=== PATIENT | male | born 1990 | race Caucasian/White ===

== ENCOUNTER 2024-08-31 08:39 | Observation (INO) | payer OTHER ==
[2024-08-31] MEDS ORDERED: ONDANSETRON 4 MG/2 ML VIAL ONE (09:48)
[2024-08-31] MEDS ORDERED: LORazepam 2 MG/ML VIAL ONE (09:48)
[2024-08-31] MEDS ORDERED: NA CHLORIDE 0.9% 1,000 ML ONE (09:49)
[2024-08-31] MEDS ORDERED: chlordiazePOXIDE HCl 25 MG CAP ONE (09:49)
[2024-08-31] MEDS ORDERED: FAMOTIDINE 20 MG/2 ML VIAL IV ONE (09:49)
[2024-08-31] MEDS: FOLIC ACID 1 MG, MULTIVITAMINS INJ 10 ML, THIAMINE HCL 100 MG in NA CHLORIDE 0.9% 1,000 ML IV ONE (10:00)
[2024-08-31 10:18] LABS: Sqamous Epithelial <5 /HPF (None Seen); Urine Bacteria None Seen /HPF (<20); Urine Bilirubin NEGATIVE (Negative); Urine Blood Negative (Negative); Urine Clarity Extremely Turbid (Clear); Urine Color Light-Yellow (Yellow); Urine Culture Reflex Order NOT NEEDED; Urine Glucose NEGATIVE (Negative); Urine Ketones 1+ (Negative); Urine Microscopic Reflex YN ORDER UMIC; Urine Mucus Slight /HPF (None Seen); Urine Nitrite NEGATIVE (Negative); Urine Protein TRACE (Negative); Urine RBC <5 /HPF (None Seen); Urine Urobilinogen Normal (Normal); Urine WBC <5 /HPF (<5); Urine pH 6.5 (5.0-7.0)
[2024-08-31 10:23] LABS: Barbiturates NEGATIVE (NEGATIVE); Benzodiazepines NEGATIVE (NEGATIVE); Cocaine NEGATIVE (NEGATIVE); METHAMPHETAM NEGATIVE (NEGATIVE); Methadone NEGATIVE (NEGATIVE); Opiates NEGATIVE (NEGATIVE); Phencyclidine NEGATIVE (NEGATIVE); THC Cannibis POSITIVE (NEGATIVE)
--- NOTE | 2024-08-31 10:24 | RAD REPORT ---
Procedure: Chest Single View HISTORY: Cough COMPARISON: none FINDINGS: The lungs appear clear of acute infiltrate. No significant pleural effusion noted. The heart is normal size. IMPRESSION: No acute abnormality is displayed.
[2024-08-31] MEDS ORDERED: PANTOPRAZOLE 40 MG INJ ONE (10:31)
--- NOTE | 2024-08-31 10:56 | RAD REPORT ---
EXAMINATION: CT ABDOMEN AND PELVIS WITHOUT CONTRAST CLINICAL INDICATION: Abdominal pain TECHNIQUE: CT abdomen and pelvis was performed, as per department protocol. IV contrast and oral was not administered.Axial, sagittal and coronal reconstructions were obtained. One or more of the following dose reduction techniques were used: Automated exposure control, adjustment of the mA and/o r kV according to the patient size, and/or iterative reconstruction. Unless otherwise specified, incidental findings do not require dedicated imaging follow-up. [id number]. COMPARISON: No prior exam. FINDINGS: The lack of intravenous and oral contrast limits evaluation of solid organs, vessels and bowel. Some images are degraded by patient motion artifact. The esophagus is dilated and fluid-filled. Small right pleural effusion. Fatty liver. The spleen, pancreas, adrenals and kidneys appear grossly normal No evidence of diverticulitis Normal appendix IMPRESSION: Dilated fluid-filled esophagus Fatty liver
[2024-08-31 11:05] LABS: Absolute Lymphocytes (CBC) 0.6 K/uL (0.7-4.9); Absolute Monocytes 0.5 K/uL (0.1-1.3); Absolute Neutrophil 3.7 K/uL (1.8-8.0); Basophils % 0.6 % (0-1.3); Hematocrit 47.8 % (39.6-49.0); Hemoglobin 16.1 g/dL (13.6-17.9); Lymphocytes % 11.7 % (15.3-44.8); MCHC 33.7 g/dL (32.0-36.0); MPV 6.5 fL (7.6-11.3); Monocytes % 10.1 % (3.3-12.3); Neutrophils % 77.6 % (41.7-73.7); Nucleated Red Blood Cells % 0.1 % (0-0); Platelets 128 thou/uL (152-406); RBC Red Blood Cell Count 4.73 M/uL (4.33-5.43); Red Cell Distribution Width 14.2 % (12.1-15.2)
[2024-08-31 11:10] LABS: PT Prothrombin Time 11.4 SECONDS (9.4-12.5); PTT, Activated Partial Thromb 27.1 SECONDS (24.3-36.9); Protime INR 1.02
[2024-08-31 11:36] LABS: ALT/SGPT 228 U/L (16-61); AST/SGOT 188 U/L (15-37); Albumin 3.8 g/dL (3.4-5.0); Alkaline Phosphatase 67 U/L (45-117); Anion Gap 14.6 mEq/L (5.0-15.0); BUN Blood Urea Nitrogen 9 mg/dL (7-18); Bicarbonate 28 mEq/L (21-32); Bilirubin Direct 0.3 mg/dL (0-0.2); Bilirubin Indirect, Calculated 0.2 mg/dL (0.2-0.8); Bilirubin Total 0.5 mg/dL (0.2-1.0); Globulin 3.9 g/dL (2.3-3.5); Glomerular Filtration Rate 118 ml/min (=/>90); Glucose Level 120 mg/dL (74-106); Magnesium 2.2 mg/dL (1.6-2.4); Potassium 3.6 mEq/L (3.5-5.1); Protein, Total 7.7 g/dL (6.4-8.2); Sodium Level 140 mEq/L (136-145); Troponin High Sensitivity 11.2 pg/mL (<58.9)
[2024-08-31 11:58] LABS: NT PRO-BNP < 5 pg/mL (<125)
--- NOTE | 2024-08-31 12:46 | EDPHYS ---
Physician Documentation [facility] Name: Osiel Davidson Age: 34 yrs Sex: Male : 1990 Arrival Date: 08/31/2024 Time: 08:39 Bed 14 Private MD: ED Physician Axel Ruiz HPI: 08/31 12:38 This 34 yrs old Male presents to ER via Ambulatory with complaints of Alcohol joseph Withdrawal. 12:38 The patient presents to the emergency department with depression, a history of joseph substance abuse, Type: beer, vodka, 16 DRINKS. Onset: The symptoms/episode began/occurred 5 year(s) ago. Past psychiatric history: Prior diagnosis: no previous psychiatric diagnosis known. Associated signs and symptoms: Pertinent positives; abdominal pain, substance abuse. Severity of symptoms: At their worst the symptoms were moderate in the emergency department the symptoms are unchanged. The patient has experienced similar episodes in the past, chronically. Historical: - Allergies: 09:14 No Known Allergies; bp - Home Meds: 09:14 None [Active]; bp - PMHx: 09:14 None; bp - Immunization history:: Adult Immunizations up to date. - Infectious Disease History:: Denies. - Social history:: Smoking status: Patient denies any tobacco usage or history of. - Family history:: not pertinent. ROS: 12:38 Constitutional: Negative for fever, chills, and weight loss, Eyes: Negative for injury, joseph pain, redness, and discharge, ENT: Negative for injury, pain, and discharge, Neck: Negative for injury, pain, and swelling, Cardiovascular: Negative for chest pain, palpitations, and edema, Respiratory: Negative for shortness of breath, cough, wheezing, and pleuritic chest pain, Back: Negative for injury and pain, : Negative for injury, bleeding, discharge, and swelling, MS/Extremity: Negative for injury and deformity, Skin: Negative for injury, rash, and discoloration, Allergy/Immunology: Negative for hives, rash, and allergies, Endocrine: Negative for neck swelling, polydipsia, polyuria, polyphagia, and marked weight changes, Hematologic/Lymphatic: Negative for swollen nodes, abnormal bleeding, and unusual bruising, 12:38 Abdomen/GI: Positive for abdominal pain, nausea, 12:38 Neuro: Positive for weakness, 12:38 Psych: Positive for depression, alcohol dependence, Exam: 12:38 Constitutional: This is a well developed, well nourished patient who is awake, alert, joseph and in no acute distress. Head/Face: Normocephalic, atraumatic. Eyes: Pupils equal round and reactive to light, extra-ocular motions intact. Lids and lashes normal. Conjunctiva and sclera are non-icteric and not injected. Cornea within normal limits. Periorbital areas with no swelling, redness, or edema. ENT: Nares patent. No nasal discharge, no septal abnormalities noted. Tympanic membranes are normal and external auditory canals are clear. Oropharynx with no redness, swelling, or masses, exudates, or evidence of obstruction, uvula midline. Mucous membranes moist. Neck: Trachea midline, no thyromegaly or masses palpated, and no cervical lymphadenopathy. Supple, full range of motion without nuchal rigidity, or vertebral point tenderness. No Meningismus. Chest/axilla: Normal chest wall appearance and motion. Nontender with no deformity. No lesions are appreciated. Cardiovascular: Regular rate and rhythm with a normal S1 and S2. No gallops, murmurs, or rubs. Normal PMI, no JVD. No pulse deficits. Respiratory: Lungs have equal breath sounds bilaterally, clear to auscultation and percussion. No rales, rhonchi or wheezes noted. No increased work of breathing, no retractions or nasal flaring. Back: No spinal tenderness. No costovertebral tenderness. Full range of motion. Male : Normal genitalia with no discharge or lesions. Skin: Warm, dry with normal turgor. Normal color with no rashes, no lesions, and no evidence of cellulitis. MS/ Extremity: Pulses equal, no cyanosis. Neurovascular intact. Full, normal range of motion., bilateral aka 12:38 ECG was reviewed by the Attending Physician. 12:38 Abdomen/GI: Inspection: distension, Bowel sounds: active, Palpation: mild abdominal tenderness, in the epigastric area, right upper quadrant and left upper quadrant, Liver: is enlarged, palpable 3 cm(s) below rib margin, Hernia: not appreciated, Vital Signs: 09:12 BP 129 / 104; Pulse 122; Resp 18; Temp 98; Pulse Ox 97% ; bp 10:41 BP 152 / 116; Pulse 111; Resp 16 S; Pulse Ox 96% on 2.5 lpm NC; kc6 11:16 BP 138 / 96; Pulse 111; Resp 16 S; Pulse Ox 94% on 2.5 lpm NC; kc6 12:26 BP 119 / 89; Pulse 94; Resp 18 S; Pulse Ox 95% on 2.5 lpm NC; kc6 15:32 BP 126 / 82; Pulse 100; Resp 18 S; Pulse Ox 95% on R/A; kc6 MDM: 08:49 Medical Screening Exam initiated joseph 12:41 Differential diagnosis: acute psychotic break, depression. Differential Diagnosis joseph altered mental status. Data reviewed: vital signs, nurses notes, lab test result(s), EKG, radiologic studies, CT scan, plain films. Consideration of Admission/Observation Patient was admitted/placed on observation. Escalation of care including admission/observation considered. I considered the following discharge prescriptions or medication management in the emergency department Medications were administered in the Emergency Department. See MAR. Independent interpretation of the following test(s) in the Emergency Department EKG: See my EKG interpretation above. Test considered but Not performed: Ultrasound NO AND US , NO CT HEAD. Historians other than the Patient: Spouse/Significant Other: /SO. Care significantly affected by the following chronic conditions: ALCOHOLISM. Counseling: I had a detailed discussion with the patient and/or guardian regarding the historical points, exam findings, and any diagnostic results supporting the discharge/admit diagnosis, lab results, radiology results, the need for further work-up and treatment in the hospital. 08/31 08:52 Order name: Basic Metabolic Panel; Complete Time: 12:07 [facility] 08/31 08:52 Order name: CBC with Diff; Complete Time: 11:20 [facility] 08/31 08:52 Order name: LFT's; Complete Time: 12:07 [facility] 08/31 08:52 Order name: Magnesium; Complete Time: 12:07 [facility] 08/31 08:52 Order name: NT PRO-BNP; Complete Time: 12:07 [facility] 08/31 08:52 Order name: PT-INR; Complete Time: 11:20 08/31 08:52 Order name: Troponin HS; Complete Time: 12:07 joseph 08/31 08:52 Order name: Acetaminophen; Complete Time: 12:07 [facility] 08/31 08:52 Order name: ETOH Level; Complete Time: 12:07 [facility] 08/31 08:52 Order name: Ptt, Activated; Complete Time: 11:20 joseph 08/31 08:52 Order name: Salicylate; Complete Time: 12:07 [facility] 08/31 08:52 Order name: Urinalysis w/ reflexes; Complete Time: 10:42 joseph 08/31 08:52 Order name: Urine Drug Screen; Complete Time: 10:42 joseph 08/31 14:48 Order name: CBC with Automated Diff EDMS 08/31 14:48 Order name: CBC with Automated Diff EDMS 08/31 14:48 Order name: CBC with Automated Diff EDMS 08/31 14:48 Order name: Comprehensive Metabolic Panel EDMS 08/31 14:48 Order name: Comprehensive Metabolic Panel EDMS 08/31 14:48 Order name: Comprehensive Metabolic Panel EDMS 08/31 14:48 Order name: Lipid Profile EDMS 08/31 14:48 Order name: Lipid Profile EDMS 08/31 14:48 Order name: Protime (+INR) EDMS 08/31 14:48 Order name: Protime (+INR) EDMS 08/31 08:52 Order name: XRAY Chest (1 view); Complete Time: 10:42 [facility] 08/31 10:08 Order name: CT Abd/Pelvis - Without Contrast; Complete Time: 11:20 [facility] 08/31 14:41 Order name: Social Service Consult EDAR 08/31 08:52 Order name: Cardiac monitoring; Complete Time: 09:45 joseph 08/31 08:52 Order name: EKG - Nurse/Tech; Complete Time: 09:45 08/31 08:52 Order name: IV Saline Lock; Complete Time: 09:45 08/31 08:52 Order name: Labs collected and sent; Complete Time: 09:45 joseph 08/31 08:52 Order name: O2 Per Protocol; Complete Time: 09:27 joseph 08/31 08:52 Order name: O2 Sat Monitoring; Complete Time: 09:27 [facility] 08/31 08:52 Order name: Suicide Screening ([place]); Complete Time: 09:45 [facility] 08/31 10:12 Order name: Labs - recollect needed: recollect all the labs/ hemolyzed per Pamela; eb Complete Time: 10:56 EC:38 Rate is 108 beats/min. Rhythm is regular. QRS Allison is Normal. LA interval is normal. joseph QRS interval is normal. QT interval is normal. No Q waves. T waves are Normal. No ST changes noted. Clinical impression: Sinus tachycardia and No evidence of ischemia. Interpreted by me. Administered Medications: 10:04 Drug: NS 0.9% IV 1000 ml IV at 1000 ml once; to be given as a bolus over 60 minutes kc6 Route: IV; Rate: 1000 ml; Site: right antecubital; 12:27 Follow up: Response: No adverse reaction; IV Status: Completed infusion; IV Intake: kc6 1000ml 10:04 Drug: Banana Bag - (Multivitamin IV 1 amp, NS 0.9% IV 1000 ml, Thiamine IV 100 mg, kc6 foLIC Acid IVPB 1 mg) IV at 500 calculated rate once Route: IV; Rate: 500 calculated rate; Site: right antecubital; 14:37 Follow up: Response: No adverse reaction; IV Status: Completed infusion; IV Intake: kc6 1000ml 10:04 Drug: Thiamine IV 100 mg IV at per protocol once Route: IV; Rate: per protocol; Site: [facility] right antecubital; 10:40 Follow up: Response: No adverse reaction; IV Status: Completed infusion kc6 10:04 Drug: Famotidine IVP 20 mg IVP once; dilute with 10 mL 0.9% NaCl; give over 2 minutes kc6 Route: IVP; Site: right antecubital; 10:41 Follow up: Response: No adverse reaction kc6 10:04 Drug: Ondansetron IVP 4 mg IVP once; over 2 minutes Route: IVP; Site: right antecubital;kc6 10:41 Follow up: Response: No adverse reaction kc6 10:04 Drug: Ativan IVP 2 mg IVP once Route: IVP; Site: right antecubital; kc6 10:41 Follow up: Response: No adverse reaction; RASS: Drowsy (-1) kc6 10:04 Drug: Librium - chlordiazePOXIDE PO 50 mg PO once Route: PO; kc6 10:41 Follow up: Response: No adverse reaction kc6 10:56 Drug: Pantoprazole IVP 40 mg IVP once Route: IVP; Site: right antecubital; kc6 11:29 Follow up: Response: No adverse reaction kc6 Disposition Summary: 08/31/24 12:45 Hospitalization Ordered Notes: Hospitalization Status: Inpatient Admission [facility] Provider: Mamie Hinojosa cha Location: Telemetry/MedSurg (Inpatient) joseph Condition: Fair joseph Problem: chronic joseph Symptoms: are unchanged joseph Bed/Room Type: Standard [facility] Room Assignment: 208(08/31/24 14:56) eb Diagnosis - Alcohol dependence with intoxication joseph - Alcohol abuse joseph - Alcohol abuse with intoxication joseph Discharge Instructions: - Discharge Summary Sheet eb Forms: - Medication Reconciliation Form joseph - SBAR form joseph - Leadership Thank You Letter [facility] Signatures: Dispatcher [employer] EDMS Axel Ruiz MD MD cha Peltier, Brian RN RN Edelmira Curtis Kaitlyn, RN RN kc6 Corrections: (The following items were deleted from the chart) 08:53 08:53 BASIC METABOLIC PANEL+C.LAB.BRZ ordered. EDMS EDMS 08:53 08:53 CBC+H.LAB.BRZ ordered. EDMS EDMS 08:53 08:53 HEPATIC FUNCTION+C.LAB.BRZ ordered. EDMS EDMS 08:53 08:53 MAGNESIUM+C.LAB.BRZ ordered. EDMS EDMS 08:53 08:53 PROBNP+C.LAB.BRZ ordered. EDMS EDMS 08:53 08:53 PROTIME (+INR)+COAG.LAB.BRZ ordered. EDMS EDMS 08:53 08:53 Troponin High Sensitivity+C.LAB.BRZ ordered. EDMS EDMS 08:53 08:53 ACETAMINOPHEN+C.LAB.BRZ ordered. EDMS EDMS 08:53 08:53 ETHANOL+C.LAB.BRZ ordered. EDMS EDMS 08:53 08:53 PTT, ACTIVATED+COAG.LAB.BRZ ordered. EDMS EDMS 08:53 08:53 SALICYLATE+C.LAB.BRZ ordered. EDMS EDMS 08:53 08:53 Urinalysis+U.LAB.BRZ ordered. EDMS EDMS 08:53 08:53 URINE DRUG SCREEN+UC.LAB.BRZ ordered. EDMS EDMS 08:53 08:53 Chest Single View+RAD.RAD.BRZ ordered. EDMS EDMS 14:56 12:45 joseph eb
--- NOTE | 2024-08-31 12:46 | ER ---
Nurse's Notes [facility] Name: Osiel Davidson Age: 34 yrs Sex: Male : 1990 Arrival Date: 08/31/2024 Time: 08:39 Bed 14 Private MD: Diagnosis: Alcohol dependence with intoxication;Alcohol abuse;Alcohol abuse with intoxication Presentation: 08/31 09:12 Chief complaint: Patient states: "I'M GOING INTO ALCOHOL WITHDRAWAL". Coronavirus bp screen: At this time, the client does not indicate any symptoms associated with coronavirus-19. Ebola Screen: No symptoms or risks identified at this time. Initial Sepsis Screen: Does the patient meet any 2 criteria? HR > 90 bpm. No. Patient's initial sepsis screen is negative. Does the patient have a suspected source of infection? No. Patient's initial sepsis screen is negative. Risk Assessment: Do you want to hurt yourself or someone else? Patient reports no desire to harm self or others. Note FAMILY STATES "MANAGING" ETOHISM WITH 1 OZ VODKA PER HOUR. Onset of symptoms is unknown. 09:12 Method Of Arrival: Ambulatory bp 09:12 Acuity: LATIA 2 bp Triage Assessment: 09:14 General: Appears distressed, unkempt, Behavior is cooperative, appropriate for age, bp agitated, anxious. Pain: Denies pain. EENT: No deficits noted. Neuro: Level of Consciousness is awake, alert, obeys commands, Oriented to Appropriate for age. Cardiovascular: Rhythm is sinus tachycardia. Respiratory: No deficits noted. GI: No signs and/or symptoms were reported involving the gastrointestinal system. : No signs and/or symptoms were reported regarding the genitourinary system. Derm: No deficits noted. Musculoskeletal: No deficits noted. Historical: - Allergies: 09:14 No Known Allergies; bp - Home Meds: 09:14 None [Active]; bp - PMHx: 09:14 None; bp - Immunization history:: Adult Immunizations up to date. - Infectious Disease History:: Denies. - Social history:: Smoking status: Patient denies any tobacco usage or history of. - Family history:: not pertinent. Screenin:15 [facility] ED Fall Risk Assessment (Adult) History of falling in the last 3 months, kc6 including since admission No falls in past 3 months (0 pts) Confusion or Disorientation No (0 pts) Intoxicated or Sedated Yes (3 pts) Impaired Gait No (0 pts) Mobility Assist Device Used No (0 pt) Altered Elimination No (0 pt) Score/Fall Risk Level 3 or more points = High Risk Oriented to surroundings, Maintained a safe environment, Educated pt \\T\\ family on fall prevention, incl call for assistance when getting out of bed. Abuse screen: Denies threats or abuse. Denies injuries from another. Nutritional screening: No deficits noted. Tuberculosis screening: No symptoms or risk factors identified. Assessment: 09:15 General: Appears in no apparent distress. comfortable, well groomed, well developed, kc6 Behavior is calm, cooperative, appropriate for age, Smells of alcohol. Pain: Denies pain. Neuro: Level of Consciousness is awake, alert, obeys commands, Oriented to person, place, time, situation, Appropriate for age Speech is slurred. Cardiovascular: Capillary refill < 3 seconds. Respiratory: Airway is patent Trachea midline Respiratory effort is even, unlabored, Respiratory pattern is regular, symmetrical. GI: Abdomen is flat, non-distended, Reports indigestion, Patient currently denies abdominal pain, diarrhea, nausea, vomiting. : No signs and/or symptoms were reported regarding the genitourinary system. EENT: No signs and/or symptoms were reported regarding the EENT system. Derm: No signs and/or symptoms reported regarding the dermatologic system. Skin is intact, is healthy with good turgor, Skin is pink, warm \\T\\ dry. Musculoskeletal: No signs and/or symptoms reported regarding the musculoskeletal system. Circulation, motion, and sensation intact. Capillary refill < 3 seconds, Range of motion: intact in all extremities. 10:15 Reassessment: Patient appears in no apparent distress at this time. No changes from kc6 previously documented assessment. Patient and/or family updated on plan of care and expected duration. Pain level reassessed. Patient is alert, oriented x 3, equal unlabored respirations, skin warm/dry/pink. 12:26 Reassessment: Patient appears in no apparent distress at this time. No changes from kc6 previously documented assessment. Patient and/or family updated on plan of care and expected duration. Pain level reassessed. Patient is alert, oriented x 3, equal unlabored respirations, skin warm/dry/pink. 13:26 Reassessment: Patient appears in no apparent distress at this time. No changes from kc6 previously documented assessment. Patient and/or family updated on plan of care and expected duration. Pain level reassessed. Patient is alert, oriented x 3, equal unlabored respirations, skin warm/dry/pink. 14:31 Reassessment: Patient appears in no apparent distress at this time. No changes from kc6 previously documented assessment. Patient and/or family updated on plan of care and expected duration. Pain level reassessed. Patient is alert, oriented x 3, equal unlabored respirations, skin warm/dry/pink. 15:32 Reassessment: Patient appears in no apparent distress at this time. No changes from kc6 previously documented assessment. Patient and/or family updated on plan of care and expected duration. Pain level reassessed. Patient is alert, oriented x 3, equal unlabored respirations, skin warm/dry/pink. Vital Signs: 09:12 BP 129 / 104; Pulse 122; Resp 18; Temp 98; Pulse Ox 97% ; bp 10:41 BP 152 / 116; Pulse 111; Resp 16 S; Pulse Ox 96% on 2.5 lpm NC; kc6 11:16 BP 138 / 96; Pulse 111; Resp 16 S; Pulse Ox 94% on 2.5 lpm NC; kc6 12:26 BP 119 / 89; Pulse 94; Resp 18 S; Pulse Ox 95% on 2.5 lpm NC; kc6 15:32 BP 126 / 82; Pulse 100; Resp 18 S; Pulse Ox 95% on R/A; kc6 ED Course: 08:42 Patient arrived in ED. sj2 08:49 Axel Ruiz MD is Attending Physician. joseph 09:12 Arm band placed on. kc6 09:13 Triage completed. bp 09:13 Brigitte Castro, CÉSAR is Primary Nurse. kc6 09:15 Oxygen administration via nasal cannula \\T\\ 2L/min. kc6 09:15 Patient has correct armband on for positive identification. Bed in low position. Call [facility] light in reach. Side rails up X2. Adult w/ patient. quality assurance monitor on. Pulse ox on. NIBP on. Door closed. Noise minimized. Lights dimmed. Warm blanket given. Pillow given. Verbal reassurance given. 09:46 Inserted saline lock: 20 gauge in right antecubital area, using aseptic technique. 6 Blood collected. Flushed with 10 mL NS. 10:00 XRAY Chest (1 view) In Process Unspecified. EDMS 10:47 CT Abd/Pelvis - Without Contrast In Process Unspecified. EDMS 10:56 Lab(s) recollected, by me, sent to lab. kc6 12:45 Mamie Hinojosa is Hospitalizing Provider. [facility] 14:37 Diet: Patient given ice chips. Tolerated well. Assisted to bathroom. kc6 15:55 No provider procedures requiring assistance completed. Patient admitted, IV remains in kc6 place. Administered Medications: 10:04 Drug: NS 0.9% IV 1000 ml IV at 1000 ml once; to be given as a bolus over 60 minutes kc Route: IV; Rate: 1000 ml; Site: right antecubital; 12:27 Follow up: Response: No adverse reaction; IV Status: Completed infusion; IV Intake: kc6 1000ml 10:04 Drug: Banana Bag - (Multivitamin IV 1 amp, NS 0.9% IV 1000 ml, Thiamine IV 100 mg, kc6 foLIC Acid IVPB 1 mg) IV at 500 calculated rate once Route: IV; Rate: 500 calculated rate; Site: right antecubital; 14:37 Follow up: Response: No adverse reaction; IV Status: Completed infusion; IV Intake: kc6 1000ml 10:04 Drug: Thiamine IV 100 mg IV at per protocol once Route: IV; Rate: per protocol; Site: [facility] right antecubital; 10:40 Follow up: Response: No adverse reaction; IV Status: Completed infusion [facility] 10:04 Drug: Famotidine IVP 20 mg IVP once; dilute with 10 mL 0.9% NaCl; give over 2 minutes kc Route: IVP; Site: right antecubital; 10:41 Follow up: Response: No adverse reaction kc6 10:04 Drug: Ondansetron IVP 4 mg IVP once; over 2 minutes Route: IVP; Site: right antecubital;kc6 10:41 Follow up: Response: No adverse reaction [facility] 10:04 Drug: Ativan IVP 2 mg IVP once Route: IVP; Site: right antecubital; 6 10:41 Follow up: Response: No adverse reaction; RASS: Drowsy (-1) [facility] 10:04 Drug: Librium - chlordiazePOXIDE PO 50 mg PO once Route: PO; kc6 10:41 Follow up: Response: No adverse reaction kc6 10:56 Drug: Pantoprazole IVP 40 mg IVP once Route: IVP; Site: right antecubital; kc6 11:29 Follow up: Response: No adverse reaction kc6 Medication: 15:55 VIS not applicable for this client. kc6 Intake: 12:27 IV: 1000ml; Total: 1000ml. kc6 14:37 IV: 1000ml; Total: 2000ml. kc6 Outcome: 12:45 Decision to Hospitalize by Provider. joseph 15:55 Admitted to Med/surg accompanied by tech, family with patient, via wheelchair, room kc6 208, with chart, Report called to CÉSAR Bradley 15:55 Condition: good 15:55 Instructed on the need for admit, 15:56 Patient left the ED. kc6 Signatures: Dispatcher [employer] EDAxel Bess MD MD cha Peltier, Brian, RN RN bp Campbell, Kaitlyn, RN RN kc6 [facility] Butler 2
--- NOTE | 2024-08-31 14:26 | P.HP ---
Certification for Inpatient Patient admitted to: Observation With expected LOS: <2 Midnights Patient will require the following post-hospital care: Other (pt needs inpatient ETOH rehab. Current ETOH level 407) Practitioner: I am a practitioner with admitting privileges, knowledge of patient current condition, hospital course, and medical plan of care. Services: Services provided to patient in accordance with Admission requirements found in Title 42 Section 412.3 of the Code of Federal Regulations Patient History Date of Service: 08/31/24 Reason for admission: Alcohol abuse with gross intoxication History of Present Illness: Mr. Davidson is a 34-year-old gentleman who denies any past medical history. Patient states he has been a daily heavy drinker for over a decade. His had been giving him an "alcohol taper" administering 1 ounce of vodka every 2 hour over the past 48 hours. He tells me he knows the side effects and health risks of alcohol excess and has tried to quit many times. He, however, has never attended inpatient rehab. His alcohol level in the emergency department is 407 and he has vomited x 1. His CT shows fatty liver and free fluid in the esophagus. Lab work indicates liver disease with a direct bili of 0.3, AST of 188, and ALT of 228, platelets 128. At bedside he has significant hiccoughs. He denies hematemesis. We were asked to admit for intoxication. Mr. Davidson and his were made aware that this is not an alcohol detox facility and that the patient would likely not have DTs or a normal alcohol level for at least 24 hours. We will admit him for hydration and try to assist with finding a treatment facility. Allergies No Known Allergies Allergy (Unverified 08/31/24 09:33) Home medications list reviewed: No Home Medications: NK [No Home Meds] 08/31/24 - Past Medical/Surgical History Has patient received pneumonia vaccine in the past: No -: Alcoholism x 1 decade Past Surgical History: Patient denies surgical history Psychosocial/ Personal History: is trying to help patient detox by tapering vodka 1 shot hourly - Social History Smoking Status: Never smoker Alcohol use: Yes CD- Drugs: No Caffeine use: No Place of Residence: Home Review of Systems 10-point ROS is otherwise unremarkable General: As per HPI Eyes: Unremarkable ENT: Unremarkable Respiratory: Unremarkable Cardiovascular: Unremarkable Gastrointestinal: Vomiting, Other (Denies hematemesis) Genitourinary: Unremarkable Musculoskeletal: Unremarkable Integumentary: Unremarkable Neurological: As per HPI Lymphatics: Unremarkable Physical Examination - Physical Exam General: Alert, Oriented x3, Obese, Other (Hiccoughs) HEENT: Atraumatic, Normocephalic Neck: Supple Respiratory: Normal air movement Cardiovascular: Regular rate/rhythm (Tachy) Capillary refill: <2 Seconds Gastrointestinal: Normal bowel sounds, No guarding, Other (obese) Musculoskeletal: No clubbing, No swelling Integumentary: No rashes Neurological: Normal speech, Normal tone, Normal affect Lymphatics: No axilla or inguinal lymphadenopathy External genitalia: Deferred Rectal: Deferred - Studies Laboratory Data (last 24 hrs) 08/31/24 08/31/24 08/31/24 10:54 10:54 10:54 WBC 4.70 Hgb 16.1 Hct 47.8 Plt Count 128 L PT 11.4 INR 1.02 APTT 27.1 Sodium 140 Potassium 3.6 BUN 9 Creatinine 0.82 Glucose 120 H Magnesium 2.2 Total Bilirubin 0.5 AST 188 H ALT 228 H Alkaline Phosphatase 67 Assessment and Plan - Plan Long-term alcoholism risk factors for cirrhosis and esophageal varices present N.p.o. Protonix 80 mg IV x 1 and then 40 mg IV every 12 Daily banana bag at 125 an hour Withdrawal precautions in 24 to 36 hours marketing services vice president consult for help with finding treatment facility - Advance Directives Does patient have a Living Will: No Does patient have a Durable POA for Healthcare: No - Code Status/Comfort Care Code Status Assessed: Yes (Full) Critical Care: No
[2024-08-31] MEDS ORDERED: SODIUM CHLORIDE 0.9% 10ML INJ IV PRN (14:42)
[2024-08-31 17:56] VITALS: BMI 28.0
[2024-08-31] MEDS: PANTOPRAZOLE 40 MG INJ IVP SCH (18:14)
[2024-08-31] MEDS: D5.45NS W/KCL 20MEQ 20 MEQ/1,000 ML BAG IV SCH (18:14)
[2024-08-31] MEDS: LORazepam 2 MG/ML VIAL IV PRN (21:42)
[2024-09-01] MEDS: PROMETHAZINE INJ 25 MG/ML AMP IV PRN (04:12)
[2024-09-01 05:35] LABS: Absolute Lymphocytes (CBC) 0.4 K/uL (0.7-4.9); Absolute Monocytes 0.5 K/uL (0.1-1.3); Absolute Neutrophil 2.5 K/uL (1.8-8.0); Basophils % 0.8 % (0-1.3); Eosinophils % 0.5 % (0-4.4); Hematocrit 38.5 % (39.6-49.0); Hemoglobin 13.3 g/dL (13.6-17.9); Lymphocytes % 12.8 % (15.3-44.8); MCH 34.5 pg (27.0-35.0); MCHC 34.6 g/dL (32.0-36.0); MCV 99.7 fL (80-100); MPV 6.8 fL (7.6-11.3); Neutrophils % 71.9 % (41.7-73.7); Nucleated Red Blood Cells % 0.1 % (0-0); Platelets 83 thou/uL (152-406); RBC Red Blood Cell Count 3.86 M/uL (4.33-5.43); Red Cell Distribution Width 13.6 % (12.1-15.2)
[2024-09-01 05:38] LABS: PT Prothrombin Time 12.3 SECONDS (9.4-12.5); Protime INR 1.1
[2024-09-01 05:53] LABS: ALT/SGPT 155 U/L (16-61); AST/SGOT 123 U/L (15-37); Albumin 3.3 g/dL (3.4-5.0); Alkaline Phosphatase 50 U/L (45-117); Anion Gap 9.4 mEq/L (5.0-15.0); BUN Blood Urea Nitrogen 8 mg/dL (7-18); Bicarbonate 31 mEq/L (21-32); Bilirubin Total 0.9 mg/dL (0.2-1.0); Globulin 3.2 g/dL (2.3-3.5); Glomerular Filtration Rate 115 ml/min (=/>90); Glucose Level 117 mg/dL (74-106); HDL Cholesterol 102 mg/dL (40-60); Potassium 3.4 mEq/L (3.5-5.1); Protein, Total 6.5 g/dL (6.4-8.2); Sodium Level 137 mEq/L (136-145)
[2024-09-01 05:54] LABS: LDL Cholesterol, Calculated 47 mg/dL (<130); LDL Cholesterol,Calc NonReport 47
[2024-09-01 06:46] LABS: HBsAG Nonreactive Report Report; Hepatitis B Core IgM Nonreactive (Nonreactive); Hepatitis B surface AG Interp. Nonreactive (Nonreactive); Hepatitis C Virus Ab Nonreactive (Nonreactive)
[2024-09-01 06:57] LABS: Blood Morphology Comment NOT SEEN (NOT SEEN); Platelet Estimate DECR; White Blood Cell Scan OK (OK)
--- NOTE | 2024-09-01 07:01 | P.PN ---
Subjective Date of Service: 09/01/24 Chief Complaint: Alcohol abuse with gross intoxication Physical Examination - Vital Signs Temperature: 98.2 F Blood Pressure: 151/89 Pulse: 101 Respirations: 16 Pulse Ox (%): 96 - Studies Laboratory Data (last 24 hrs) 08/31/24 08/31/24 08/31/24 10:54 10:54 10:54 WBC 4.70 Hgb 16.1 Hct 47.8 Plt Count 128 L PT 11.4 INR 1.02 APTT 27.1 Sodium 140 Potassium 3.6 BUN 9 Creatinine 0.82 Glucose 120 H Magnesium 2.2 Total Bilirubin 0.5 AST 188 H ALT 228 H Alkaline Phosphatase 67 Assessment And Plan - Current Problems (Diagnosis) (1) ETOH abuse Current Visit: Yes Status: Acute (2) Transaminitis Current Visit: Yes Status: Acute (3) Anemia Current Visit: Yes Status: Acute Qualifiers: Anemia type: unspecified type Qualified Code(s): D64.9 - Anemia, unspecified Discharge Plan: Home Critical Care: No Time Spent Managing PTS Care (In Minutes): 35
[2024-09-01] MEDS: FLU (Fluarix Triv) TS24-25(6MOS UP)/PF 45 MCG/0.5 ML Syringe IM ONE (07:45)
[2024-09-01] MEDS: chlordiazePOXIDE HCl 25 MG CAP PO SCH (08:16)
[2024-09-01] MEDS: THIAMINE 200 MG/2 ML INJ IVP SCH (08:17)
[2024-09-01 08:38] VITALS: TEMP 97.3
[2024-09-01 10:16] LABS: Absolute Lymphocytes (CBC) 0.3 K/uL (0.7-4.9); Absolute Monocytes 0.5 K/uL (0.1-1.3); Absolute Neutrophil 2.3 K/uL (1.8-8.0); Basophils % 0.7 % (0-1.3); Eosinophils % 0.4 % (0-4.4); Hematocrit 38.9 % (39.6-49.0); Hemoglobin 13.3 g/dL (13.6-17.9); MCH 34.3 pg (27.0-35.0); MCHC 34.2 g/dL (32.0-36.0); MCV 100.3 fL (80-100); Neutrophils % 72.9 % (41.7-73.7); Nucleated Red Blood Cells % 0.2 % (0-0); Platelets 81 thou/uL (152-406); RBC Red Blood Cell Count 3.88 M/uL (4.33-5.43); Red Cell Distribution Width 13.7 % (12.1-15.2)
[2024-09-01] MEDS: FOLIC ACID 1 MG, MULTIVITAMINS INJ 10 ML, THIAMINE HCL 100 MG in NA CHLORIDE 0.9% 1,000 ML IV SCH (10:24)
[2024-09-01 11:17] VITALS: O2SAT 96
--- NOTE | 2024-09-01 12:48 | P.DS ---
Admission Date: 08/31/24 Discharge Date: 09/01/24 Disposition: ROUTINE DISCHARGE Discharge Condition: FAIR Reason for Admission: Alcohol abuse with gross intoxication Brief History of Present Illness: Mr. Davidson is a 34-year-old gentleman who denies any past medical history. Patient states he has been a daily heavy drinker for over a decade. His had been giving him an "alcohol taper" administering 1 ounce of vodka every 2 h our over the past 48 hours. He tells me he knows the side effects and health risks of alcohol excess and has tried to quit many times. He, however, has never attended inpatient rehab. His alcohol level in the emergency department is 407 and he has vomited x 1. His CT shows fatty liver and free fluid in the esophagus. Lab work indicates liver disease with a direct bili of 0.3, AST of 188, and ALT of 228, platelets 128. At bedside he has significant hiccoughs. He denies hematemesis. We were asked to admit for intoxication. Mr. Davidson and his were made aware that this is not an alcohol detox facility and that the patient would likely not have DTs or a normal alcohol level for at least 24 hours. We will admit him for hydration and try to assist with finding a treatment facility. - Physical Exam General: Alert, Oriented x3, HEENT: Atraumatic, Normocephalic Neck: Supple Respiratory: Normal air movement Cardiovascular: Regular rate/rhythm Capillary refill: <2 Seconds Gastrointestinal: Normal bowel sounds, No guarding, Other Musculoskeletal: No clubbing, No swelling Integumentary: No rashes Neurological: Normal speech, Normal tone, Normal affect Hospital Course: Mr. Davidson is a 34-year-old gentleman who denies any past medical history. Patient states he has been a daily heavy drinker for over a decade. His had been giving him an "alcohol taper" administering 1 ounce of vodka every 2 hour over the past 48 hours. He tells me he knows the side effects and health risks of alcohol excess and has tried to quit many times. He, however, has never attended inpatient rehab.patient request info on outpatient setting due to job. He was treated with Librium while inpatient, jitters improved, tolerating diet, follow up with PCP in 1-2 days, call office for apt Information given for outpatient EtOH treatment, Needs to follow-up with PCP in 1 to 2 days Assessment ETOH USE disorder Dishcharge on librum, instructed on ETOH cessation, OP info given to patient Transamintis-improving Nausea Vomiting-improving, tolerating diet, discharged home on Zofran Hypertension- RX BP meds, take BP after discharge, hold if systolic BP <160 Hicups - discharge home on baclofen for hicups prn anemia HH stable Continue home medicines as previously prescribed GOAL: Clear understanding of disease process INSTRUCTIONS: Physician Discharge Instructions: -Follow-up with PCP in 1 to 2 weeks -Please call Dr. Souza at [phone] if any questions regarding hospital stay -Please call nursing station at [phone] if any nursing or medication questions -Return to the emergency room if symptoms worsen Diet: ADA, low sodium Activity: Fall precautions Vital Signs/Physical Exam: Temp Pulse Resp BP Pulse Ox 97.3 F 92 H 16 163/100 H 98 09/01/24 12:00 09/01/24 12:00 09/01/24 12:00 09/01/24 12:00 09/01/24 12:00 Laboratory Data at Discharge: WBC 3.10 thou/uL (4.3-10.9) L 09/01/24 10:06 Hgb 13.3 g/dL (13.6-17.9) L 09/01/24 10:06 Hct 38.9 % (39.6-49.0) L 09/01/24 10:06 Plt Count 81 thou/uL (152-406) L 09/01/24 10:06 PT 12.3 SECONDS (9.4-12.5) 09/01/24 05:28 INR 1.10 09/01/24 05:28 APTT 27.1 SECONDS (24.3-36.9) 08/31/24 10:54 Sodium 137 mEq/L (136-145) 09/01/24 05:28 Potassium 3.4 mEq/L (3.5-5.1) L 09/01/24 05:28 BUN 8 mg/dL (7-18) 09/01/24 05:28 Creatinine 0.90 mg/dL (0.70-1.30) 09/01/24 05:28 Glucose 117 mg/dL (74-106) H 09/01/24 05:28 Magnesium 2.2 mg/dL (1.6-2.4) 08/31/24 10:54 Total Bilirubin 0.9 mg/dL (0.2-1.0) 09/01/24 05:28 AST 123 U/L (15-37) H 09/01/24 05:28 ALT 155 U/L (16-61) H 09/01/24 05:28 Alkaline Phosphatase 50 U/L (45-117) D 09/01/24 05:28 Triglycerides < 30 mg/dL (<150) 09/01/24 05:28 Cholesterol 155 mg/dL (<200) 09/01/24 05:28 HDL Cholesterol 102 mg/dL (40-60) H 09/01/24 05:28 Cholesterol/HDL Ratio 1.52 09/01/24 05:28 Home Medications: Multivit-Mins/Iron/Folic/Lycop [Centrum Men's Tablet] 1 tab PO DAILY 08/31/24 Baclofen 10 mg PO Q8H PRN #10 tab 09/01/24 Metoprolol Tartrate 50 mg PO BID PRN 30 Days #60 tab 09/01/24 Metoprolol Tartrate [Lopressor*] 50 mg PO BID 6AM 6PM #60 tab 09/01/24 Ondansetron [Zofran] 4 mg PO Q6H PRN 10 Days #30 tab 09/01/24 Pantoprazole [Protonix Tab*] 40 mg PO DAILY 30 Days #30 tab 09/01/24 chlordiazePOXIDE HCl [Librium*] 25 mg PO Q6HR 84 Days #90 cap 09/01/24 New Medications: Baclofen 10 mg PO Q8H PRN #10 tab PRN Reason: hicups chlordiazePOXIDE HCl [Librium*] 25 mg PO Q6HR 84 Days #90 cap Metoprolol Tartrate 50 mg PO BID PRN 30 Days #60 tab PRN Reason: Titrate To Sbp (Must Define) Pantoprazole [Protonix Tab*] 40 mg PO DAILY 30 Days #30 tab Ondansetron [Zofran] 4 mg PO Q6H PRN 10 Days #30 tab PRN Reason: Nausea / Vomiting Physician Discharge Instructions: Mr. Davidson is a 34-year-old gentleman who denies any past medical history. Patient states he has been a daily heavy drinker for over a decade. His had been giving him an "alcohol taper" administering 1 ounce of vodka every 2 hour over the past 48 hours. He tells me he knows the side effects and health risks of alcohol excess and has tried to quit many times. He, however, has never attended inpatient rehab.patient request info on outpatient setting due to job. Tolerating diet, follow up with PCP in 1-2 days, call office for apt Assessment ETOH USE disorder Dishcharge on librum, instructed on ETOH cessation, OP info given to patient Transamintis-improvinv Nausea Vomiting-improving, tolerating diet Hypertension- RX BP meds, take BP after discharge, hold if systolic BP <160 Hicups - discharge home on baclofen for hicups prn anemia HH stable Continue home medicines as previously prescribed GOAL: Clear understanding of disease process INSTRUCTIONS: Physician Discharge Instructions: -Follow-up with PCP in 1 to 2 weeks -Please call Dr. Souza at [phone] if any questions regarding hospital stay -Please call nursing station at [phone] if any nursing or medication questions -Return to the emergency room if symptoms worsen Diet: ADA, low sodium Activity: Fall precautions Diet: Low sodium Activity: Fall precautions Followup: NONE,NONE [Primary Care Provider] - Time spent managing pt's care (in minutes): 45
[2024-09-01] MEDS: cloNIDine HCL 0.1 MG TAB PO ONE (12:52)
[2024-09-01] MEDS: METOPROLOL TARTRATE 5 MG/5 ML INJ IV ONE (12:53)
[2024-09-01] MEDS: BACLOFEN 10 MG TAB PO ONE (12:59)
[2024-09-01] MEDS: POTASSIUM 25 MEQ EFFERV TAB PO ONE (13:28)
[2024-09-01 13:29] VITALS: BP 150/90
[2024-09-01] MEDS ORDERED: METOPROLOL TAR 50 MG TAB PO SCH (18:00)
== END 2024-09-01 13:59 | disposition home or self-care (01) ==
LOC: ER 08:39 → 2ND 14:42
PROVIDERS: ADMIT Internal Medicine; ATTEND Hospitalist
DX: F10.229 Alcohol dependence with intoxication, unspecified (principal); K76.0 Fatty (change of) liver, not elsewhere classified; I10 Essential (primary) hypertension; R06.6 Hiccough; R74.01 Elevation of levels of liver transaminase levels; Y90.8 Blood alcohol level of 240 mg/100 ml or more
CPT/HCPCS: 96365; 96368; 85025 ×3; 81001; 80048; 36415; 83735; 85610 ×2; 80061; 82947 ×3; 80076; 85730; 84484; 80053; 83880; 80307; 80074; 74176; 71045; 96375; 99285; 96366; 80143; 80179; 82077; J2550; J3411 ×3; J2470 ×3; J2405; J7030 ×3; G0378 ×3